=== PATIENT | male | born 1985 | race Caucasian/White ===

== ENCOUNTER 2022-09-12 07:17 | Day surgery (SDC) | payer OTHER ==
[2022-09-11 11:20] VITALS: BMI 24.4
[2022-09-12] MEDS ORDERED: Midazolam HCl 2 mg/2 ml Vial ONE (09:22)
[2022-09-12] MEDS ORDERED: Oxymetazoline HCl 0.05% (30 ML BOT) ONE ×2 (09:24→09:53)
[2022-09-12] MEDS ORDERED: Lidocaine 1% (PF) 30 ML VIAL ONE (09:53)
[2022-09-12] MEDS ORDERED: EPINEPHrine 1 MG/ML AMP ONE (09:54)
[2022-09-12] MEDS ORDERED: fentaNYL Citrate/PF 100 MCG/2 ML SYRINGE ONE (09:55)
[2022-09-12] MEDS ORDERED: SUGAMMADEX SODIUM 200 MG/2 ML VIAL ONE (09:56)
[2022-09-12] MEDS ORDERED: PROPOFOL 200 MG/20 ML VIAL ONE (10:13)
[2022-09-12] MEDS ORDERED: Rocuronium Bromide 10 MG/ML (10ML VIAL) ONE (10:13)
[2022-09-12] MEDS ORDERED: Dexamethasone 20 MG/5 ML VIAL ONE (10:13)
[2022-09-12] MEDS ORDERED: Ondansetron PF 4 MG/2 ML Vial ONE (10:13)
[2022-09-12] MEDS ORDERED: Bacitracin Zinc Ointment 30 gm TUBE ONE (10:32)
== END 2022-09-12 12:54 | disposition home or self-care (01) ==
LOC: SDC 07:17
PROVIDERS: ATTEND Specialist
PROC: 09SM0ZZ Reposition Nasal Septum, Open Approach (ICD-10-PCS; principal; 2022-09-12)
PROC: 09SL8ZZ Reposition Nasal Turbinate, Via Natural or Artificial Opening Endoscopic (ICD-10-PCS; principal; 2022-09-12)
DX: J34.2 Deviated nasal septum (principal); J34.3 Hypertrophy of nasal turbinates; J30.9 Allergic rhinitis, unspecified; G47.8 Other sleep disorders; Z87.891 Personal history of nicotine dependence
CPT/HCPCS: J0171; J1100; J2001; J2250; J2405; J2704